=== PATIENT | female | born 1940 | race Caucasian/White ===

== ENCOUNTER → 2016-09-12 | Outpatient (CLI) | payer OTHER ==
[~2016-09-12] VITALS: Ht 154.9 cm; Wt 66.0 kg
[~2016-09-12] MED LIST: "\\\"BP PILL\\\""; ADVIL LIQUI-GE200 MG PO; AMLODIPINE BESY10 MG PO; BENICAR HCT 401 EACH PO; CALCIUM CARB1 TABLET PO; ERGOCALCIF50000 UNIT PO; LOPRESSOR50 MG PO; NEURONTIN100 MG PO; PERCOCET 10/1 TABLET PO; PYRIDIUM100 MG PO; REMERON15 M2 PO; SENNA PLUS TAB1 EACH PO; VALSARTAN160 MG PO; ZOFRAN4 MG PO
[2016-09-12 10:55] VITALS: BP 100/54
== END | disposition home or self-care (01) ==
LOC: IVINF 10:46
DX: D50.9 Iron deficiency anemia, unspecified (principal); N18.3 Chronic kidney disease, stage 3 (moderate)
CPT/HCPCS: 96365; 96366; J1756; J7050